=== PATIENT | male | born 1970 | race Caucasian/White ===

== ENCOUNTER 2016-05-18 17:20 | Emergency (ER) | payer OTHER ==
[2016-05-18 17:28] VITALS: BP 131/81; PULSE 75; RESP 14; TEMP 97.7; O2SAT 100
--- NOTE | 2016-05-18 17:52 | DX ---
Two Views Left Clavicle Reason for examination: Pain following trauma; skiing accident. Findings: There is a displaced, angulated and comminuted mid shaft left clavicular fracture. The left AC joint is not widened. Degenerative changes are noted involving the AC joint. Impression: Comminuted, displaced and angulated mid shaft left clavicular fracture.
--- NOTE | 2016-05-18 17:56 | EDPHY ---
H & P Time Seen by Provider: 05/18/16 17:39 HPI/ROS: CHIEF COMPLAINT: Left clavicle pain HISTORY OF PRESENT ILLNESS: 45-year-old male arrives via private vehicle had complaining of left clavicle pain after he was skiing at [place] fell onto his left shoulder felt felt abnormality. He is evaluated by fish skinning machine feeder, placed in a sling transported via private vehicle. Denies: Head injury, neck pain injury , peripheral paresthesia, weakness, numbness, break in skin. Patient lives in [place], [place]. PHYSICAL EXAM (Prior to examination, patient consented to physical exam, hands were washed and my usual and customary physical exam procedures followed) 1) GENERAL: Well-developed, well-nourished, alert and oriented. Appears to be in no acute distress. 2) HEAD: Normocephalic 3) HEENT: Pupils equal, round, reactive to light bilaterally. 4) LUNGS: Breathing comfortably. 5) MUSCULOSKELETAL: Tender to palpation left mid clavicle. Soft compartments. Normal coloration. 6) SKIN: no tenting. Intact. No puncture wound. 7) VASCULAR: pulses and cap refill present are brisk 8) NEUROLOGIC: Radial, ulnar, median nerve function intact with no deficits appreciated on exam 9) lungs: Clear bilaterally equal breath sounds. DIFFERENTIAL DIAGNOSIS: in no particular order including but not limited to fracture, sprain, compartment syndrome Procedure: Splint A sling was applied by ER case technician. After application of the splint I returned and re-examined the patient. The splint was adequately immobilizing the joint and distal to the splint the patient's circulation and sensation were intact. Patient shows no signs of compartment syndrome. Was given orthopedic precautions. Smoking Status: Never smoked Constitutional: Initial Vital Signs Temperature (C) 36.5 C 05/18/16 17:26 Heart Rate 75 05/18/16 17:26 Respiratory Rate 14 05/18/16 17:26 Blood Pressure 131/81 H 05/18/16 17:26 O2 Sat (%) 100 05/18/16 17:26 O2 Delivery Mode Room Air Allergies/Adverse Reactions: No Known Allergies Allergy (Unverified 05/18/16 17:28) Home Medications: Medication Instructions Recorded Hydrocodone/APAP 5/325 [[place] 1 tab PO Q6 PRN #15 tab 05/18/16 5/325 (RX)] MDM/Departure - MDM Diagnostics: Two Views Left Clavicle Reason for examination: Pain following trauma; skiing accident. Findings: There is a displaced, angulated and comminuted mid shaft left clavicular fracture. The left AC joint is not widened. Degenerative changes are noted involving the AC joint. Impression: Comminuted, displaced and angulated mid shaft left clavicular fracture. Dictated By: Giovanni Henry MD Images reviewed by myself - Depart Disposition: Home, Routine, Self-Care Clinical Impression: Closed left clavicular fracture Qualifiers: Encounter type: initial encounter Clavicle location: shaft Fracture alignment: displaced Qualifier Code: (S42.022A) Displaced fracture of shaft of left clavicle, initial encounter for closed fracture Condition: Good Instructions: Clavicle Fracture (ED) Additional Instructions: Return to the ER immediately if you experience discoloration, have worsening pain, numbness, tingling, or any other symptoms that concern you. If you received x-rays in the emergency department today, be advised, that ligamentous , tendon, muscular, and other non-bony injury cannot be fully ruled out. Prescriptions: Hydrocodone/APAP 5/325 [[place] 5/325 (RX)] 1 tab PO Q6 PRN #15 tab PRN Reason: Pain, Severe Referrals: Henrique Santos MD [Medical Doctor] - 2-3 days, call for appt.
[2016-05-18] MEDS ORDERED: OXYCODONE/APAP 5/325 TAB PO ONE (17:57)
== END 2016-05-18 18:22 | disposition home or self-care (01) ==
LOC: EEVIPCON 17:20
DX: S42.022A Displaced fracture of shaft of left clavicle, initial encounter for closed fracture (principal); V00.321A Fall from snow-skis, initial encounter; Y92.89 Other specified places as the place of occurrence of the external cause; Y93.23 Activity, snow (alpine) (downhill) skiing, snowboarding, sledding, tobogganing and snow tubing
CPT/HCPCS: A4565